=== PATIENT | female | born 1980 | race Caucasian/White ===

== ENCOUNTER 2020-12-14 21:28 | Emergency (ER) | payer SELFPAY ==
--- NOTE | 2020-12-14 22:00 | NUR ---
Patient not in waiting room when called
--- NOTE | 2020-12-14 22:10 | NUR ---
Patient not in room when called
--- NOTE | 2020-12-14 22:34 | NUR ---
Last attempt patient not present when called.
== END 2020-12-14 22:35 | disposition left against medical advice (07) ==
LOC: ER 21:31
DX: Z53.21 Procedure and treatment not carried out due to patient leaving prior to being seen by health care provider (principal)